=== PATIENT | male | born 1955 | race Caucasian/White ===

== ENCOUNTER 2018-06-17 17:36 | Emergency (ER) | payer OTHER ==
[2018-06-17] MEDS ORDERED: TRAZ150T8 PO (17:51)
[2018-06-17] MEDS ORDERED: DES100PT PO (17:51)
[2018-06-17] MEDS ORDERED: LAMO200T45 PO (17:51)
[2018-06-17 18:14] LABS: PLATELET COUNT, AUTOMATED 282 K/uL (150-450)
[2018-06-17] MEDS ORDERED: IOPAMIDOL 76% 75 ML INFUS BTL 0 ML ONE (18:28)
--- NOTE | 2018-06-17 18:35 | ER Report ---
History and Physical Time Seen By MD: 18:24 Hx. of Stated Complaint: pt reports blood in urine that started sunday, "got better, getting worse again" HPI/ROS CHIEF COMPLAINT: Painless hematuria HISTORY OF PRESENT ILLNESS: Patient is a 62-year-old male who resides in [facility]. He reports only history of treated depression without history of suicidal ideation. States this past Sunday he noticed some blood-tinged color to his urine by Sunday the blood in the urine had increasing heat and passing some clots. He states on Sunday the symptoms seemed to resolve and then today the blood in the urine returned. He reports that it is entirely painless. He denies dysuria denies any increase in urinary frequency or hesitancy. He denies any abdominal or trauma to the flanks. Smoker and also denies any alcohol or drug use. Similar symptoms in the past no prior history of cancer. 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 REVIEW OF SYSTEMS: Respiratory: No cough, no dyspnea. Cardiovascular: No chest pain, no palpitations. Gastrointestinal: No vomiting, no abdominal pain. Musculoskeletal: No back pain. : hematuria Allergies: Coded Allergies: Penicillins (Verified Allergy, Unknown, 06/17/18) Home Meds Reported Medications Trazodone Hcl (TRAZODONE HCL) 150 Mg Tablet, 150 MG PO QHS 06/17/18 Desvenlafaxine Succinate (PRISTIQ ER) 100 Mg Tabcr, 100 MG PO QDAY 06/17/18 Lamotrigine (LAMOTRIGINE) 200 Mg Tablet, 200 MG PO QDAY 06/17/18 Past Medical/Surgical History Depression without hx of suicide Constitutional Vital Sign - Last 24 Hours 06/17/18 06/17/18 06/17/18 06/17/18 17:40 17:45 17:51 18:00 Temp 97.8 Pulse 64 Resp 16 B/P (MAP) 165/97 165/97 (119) 153/103 (120) Pulse Ox 98 100 O2 Delivery Room Air 06/17/18 06/17/18 18:05 18:20 Pulse 58 Pulse Ox 100 Physical Exam General Appearance: The patient is alert, has no immediate need for airway protection and no current signs of toxicity. Eyes: Pupils equal and round no injection. Respiratory: Chest is non tender, lungs are clear to auscultation. Cardiac: regular rate and rhythm Gastrointestinal: Abdomen is soft and non tender, no masses, bowel sounds normal. No flank pain. Musculoskeletal: Neck: Neck is supple and non tender. Extremities have full range of motion and are non tender. Skin: No rashes or lesions. Medical Decision Making Data Points Result Diagram: 06/17/18180806/17/181808 Laboratory Hematology Test 06/17/18 17:42 06/17/18 18:09 Urine Color Ladi Urine Clarity Cloudy Urine pH 6.0 pH (4.8-9.5) Urine Specific Ennice 1.023 Urine Protein 100 mg/dL (NEGATIVE) Urine Glucose (UA) Negative mg/dL (NEGATIVE) Urine Ketones Negative mg/dL (NEGATIVE) Urine Blood Large (NEGATIVE) Urine Nitrite Negative (NEGATIVE) Urine Bilirubin Negative (NEGATIVE) Urine Urobilinogen Negative mg/dL (0.2-1.9) Urine Leukocyte Esterase Negative (NEGATIVE) Urine RBC 1932 /HPF (0-2/HPF) Urine WBC 3 /HPF (0-5/HPF) Urine Squamous Epithelial Cells None /LPF (</=FEW) Urine Bacteria Negative /HPF (NONE-FEW) Urine Mucus Few /HPF (NONE-FEW) Urine Yeast (Budding) Few /HPF Red Blood Count 4.69 M/uL (4.00-5.60) Mean Corpuscular Volume 88.5 fL (80.0-96.0) Mean Corpuscular Hemoglobin 30.5 pg (26.0-33.0) Mean Corpuscular Hemoglobin Concent 34.5 g/dL (32.0-36.0) Red Cell Distribution Width 13.4 % (11.5-14.5) Mean Platelet Volume 8.0 fL (7.2-11.1) Neutrophils (%) (Auto) 68.9 % (39.4-72.5) Lymphocytes (%) (Auto) 21.0 % (17.6-49.6) Monocytes (%) (Auto) 9.3 % (4.1-12.4) Eosinophils (%) (Auto) 0.3 % (0.4-6.7) Basophils (%) (Auto) 0.5 % (0.3-1.4) Nucleated RBC Relative Count (auto) 0.0 /100WBC Neutrophils # (Auto) 4.8 K/uL (2.0-7.4) Lymphocytes # (Auto) 1.5 K/uL (1.3-3.6) Monocytes # (Auto) 0.7 K/uL (0.3-1.0) Eosinophils # (Auto) 0.0 K/uL (0.0-0.5) Basophils # (Auto) 0.0 K/uL (0.0-0.1) Nucleated RBC Absolute Count (auto) 0.00 K/uL Sodium Level 139 mmol/L (137-145) Potassium Level 3.6 mmol/L (3.5-5.0) Chloride Level 100 mmol/L (98-107) Carbon Dioxide Level 29 mmol/L (22-30) Blood Urea Nitrogen 22 mg/dl (9-21) Creatinine 1.00 mg/dl (0.66-1.25) Glomerular Filtration Rate Calc > 60.0 Random Glucose 95 mg/dl (75-110) Calcium Level 9.1 mg/dl (8.4-10.2) Total Bilirubin 0.9 mg/dl (0.2-1.3) Aspartate Amino Transf (AST/SGOT) 30 U/L (0-35) Alanine Aminotransferase (ALT/SGPT) 30 U/L (0-56) Alkaline Phosphatase 87 U/L (0-126) Total Protein 7.5 g/dl (6.3-8.2) Albumin 4.2 g/dl (3.5-5.0) Chemistry Test 06/17/18 17:42 06/17/18 18:09 Urine Color Ladi Urine Clarity Cloudy Urine pH 6.0 pH (4.8-9.5) Urine Specific Ennice 1.023 Urine Protein 100 mg/dL (NEGATIVE) Urine Glucose (UA) Negative mg/dL (NEGATIVE) Urine Ketones Negative mg/dL (NEGATIVE) Urine Blood Large (NEGATIVE) Urine Nitrite Negative (NEGATIVE) Urine Bilirubin Negative (NEGATIVE) Urine Urobilinogen Negative mg/dL (0.2-1.9) Urine Leukocyte Esterase Negative (NEGATIVE) Urine RBC 1932 /HPF (0-2/HPF) Urine WBC 3 /HPF (0-5/HPF) Urine Squamous Epithelial Cells None /LPF (</=FEW) Urine Bacteria Negative /HPF (NONE-FEW) Urine Mucus Few /HPF (NONE-FEW) Urine Yeast (Budding) Few /HPF White Blood Count 7.0 k/uL (4.5-11.0) Red Blood Count 4.69 M/uL (4.00-5.60) Hemoglobin 14.3 g/dL (14.0-18.0) Hematocrit 41.4 % (42.0-52.0) Mean Corpuscular Volume 88.5 fL (80.0-96.0) Mean Corpuscular Hemoglobin 30.5 pg (26.0-33.0) Mean Corpuscular Hemoglobin Concent 34.5 g/dL (32.0-36.0) Red Cell Distribution Width 13.4 % (11.5-14.5) Platelet Count 282 K/uL (150-450) Mean Platelet Volume 8.0 fL (7.2-11.1) Neutrophils (%) (Auto) 68.9 % (39.4-72.5) Lymphocytes (%) (Auto) 21.0 % (17.6-49.6) Monocytes (%) (Auto) 9.3 % (4.1-12.4) Eosinophils (%) (Auto) 0.3 % (0.4-6.7) Basophils (%) (Auto) 0.5 % (0.3-1.4) Nucleated RBC Relative Count (auto) 0.0 /100WBC Neutrophils # (Auto) 4.8 K/uL (2.0-7.4) Lymphocytes # (Auto) 1.5 K/uL (1.3-3.6) Monocytes # (Auto) 0.7 K/uL (0.3-1.0) Eosinophils # (Auto) 0.0 K/uL (0.0-0.5) Basophils # (Auto) 0.0 K/uL (0.0-0.1) Nucleated RBC Absolute Count (auto) 0.00 K/uL Glomerular Filtration Rate Calc > 60.0 Calcium Level 9.1 mg/dl (8.4-10.2) Total Bilirubin 0.9 mg/dl (0.2-1.3) Aspartate Amino Transf (AST/SGOT) 30 U/L (0-35) Alanine Aminotransferase (ALT/SGPT) 30 U/L (0-56) Alkaline Phosphatase 87 U/L (0-126) Total Protein 7.5 g/dl (6.3-8.2) Albumin 4.2 g/dl (3.5-5.0) Urinalysis Test 06/17/18 17:42 Urine Color Ladi Urine Clarity Cloudy Urine pH 6.0 pH (4.8-9.5) Urine Specific Ennice 1.023 Urine Protein 100 mg/dL (NEGATIVE) Urine Glucose (UA) Negative mg/dL (NEGATIVE) Urine Ketones Negative mg/dL (NEGATIVE) Urine Blood Large (NEGATIVE) Urine Nitrite Negative (NEGATIVE) Urine Bilirubin Negative (NEGATIVE) Urine Urobilinogen Negative mg/dL (0.2-1.9) Urine Leukocyte Esterase Negative (NEGATIVE) Urine RBC 1932 /HPF (0-2/HPF) Urine WBC 3 /HPF (0-5/HPF) Urine Squamous Epithelial Cells None /LPF (</=FEW) Urine Bacteria Negative /HPF (NONE-FEW) Urine Mucus Few /HPF (NONE-FEW) Urine Yeast (Budding) Few /HPF EKG/Imaging Imaging [place]AC[place] [facility] [place]IENT NAME: Mamadou Quinonez : 1955 MR: [id number] V: [id number] EXAM DATE: ORDERING PHYSICIAN: QUYEN GAUTAM TECHNOLOGIST: Location: [facility] - [place] Patient: Mamadou Quinonez : 1955 Visit/Account:[id number] Date of Sevice: 06/17/2018 EXAMINATION: CT abdomen and pelvis without and with IV contrast (CT urogram) HISTORY: Gross hematuria. TECHNIQUE: Axial CT images of the abdomen and pelvis were initially obtained without IV contrast. Axial CT images of the abdomen and pelvis were then obtained with IV contrast, utilizing a split bolus technique with combined nephrographic and excretory delayed imaging performed at 8 minutes. Coronal and sagittal 2D reconstructed images were obtained. One of the following dose optimization techniques was utilized in the performance of this exam: Automated exposure control; adjustment of the mA and/or kV according to the patient's size; or use of an iterative reconstruction technique. Specific details can be referenced in the facility's radiology CT exam operational policy. Contrast: 120 mL of IV Isovue-370. COMPARISON: None. FINDINGS: Right kidney and ureter: There is a 4 mm calculus in the distal right ureter at the UVJ. This results in no significant right-sided hydronephrosis or ureteral dilatation at this time. No additional right-sided urinary calculi. Normal size and morphology of the right kidney, measuring 11.2 cm in length. The right kidney enhances normally. No focal solid or cystic renal mass. The renal collecting system and ureter are unremarkable on delayed imaging, without wall thickening or suspicious filling defect. Left kidney and ureter: Punctate nonobstructing 1 mm calculi in the upper and lower left kidney. No left-sided hydronephrosis or ureteral calculus. Normal size and morphology of the left kidney, measuring 10.7 cm in length. The left kidney enhances normally. Single subcentimeter cyst in the upper left kidney. No solid enhancing renal mass. The renal collecting system and left ureter are unremarkable on delayed imaging, without wall thickening or suspicious filling defect. Urinary bladder: Mildly distended and morphologically unremarkable. Moderate prostatic enlargement. Liver: Negative. Gallbladder and bile ducts: Negative. Spleen: Negative. Pancreas: Negative. Adrenal glands: Negative. Bowel and peritoneum: The small bowel and colon are normal in caliber, without evidence of obstruction or any focal inflammatory process. No free fluid or free intraperitoneal air. Lymph node assessment: Negative. Vessels: Negative. Musculoskeletal: No acute osseous findings. Scattered degenerative changes along the lumbar spine. Body wall: Negative. Lung bases: Negative. IMPRESSION: 1. 4 mm calculus in the distal right ureter at the UVJ. This results in no significant hydronephrosis or upstream ureteral dilatation at this time. 2. Punctate nonobstructing 1 mm calculi in the mid and lower left kidney. 3. Moderate prostatic enlargement. 4. No other acute intra-abdominal findings. Report Dictated By: Pop Barrientos MD at 06/17/2018 7:14 PM Report E-Signed By: Pop Barrientos MD at 06/17/2018 7:25 PM [id number] ED Course/Re-evaluation ED Course 06/17/2018 6:34:51 pm patient with painless hematuria passing clots. Urinalysis shows large blood no bacteria negative for nitrites and leuk esterase. I will obtain CBC and electrolytes. Plan will be a CT of the abdomen and pelvis with and without contrast looking at urogram study. 06/17/2018 7:34:[address] scan shows a 4 mm UVJ stone there is no evidence of hydronephrosis. The patient also with enlarged prostate. No other acute abdominal findings were noted. Hematuria could be a result of this done however I still feel patient needs follow-up with urology. He was counseled to call tomorrow to schedule an appointment. Also further instructed to return to the emergency department if any time he develops pain, fevers worsening symptoms including worsening hematuria. Decision to Disposition Date: Jun 17, 2018 Decision to Disposition Time: 19:35 Depart Departure Latest Vital Signs Vital Signs Date Time Temp Pulse Resp B/P (MAP) Pulse Ox O2 Delivery O2 Flow Rate FiO2 06/17/18 18:20 58 06/17/18 18:05 100 06/17/18 18:00 153/103 (120) 06/17/18 17:40 97.8 16 Room Air Impression: Primary Impression: Hematuria Additional Impression: Kidney stone Condition: Improved Disposition: HOME OR SELF-CARE Referrals: JESÚS LARA MD Patient Instructions: Hematuria (ED), Kidney Stones (ED) Additional Instructions: You were given contact information for Dr. Christopher Lara urology. Call tomorrow to schedule a follow-up appointment. States that you've been having painless blood in the urine and were seen in the emergency department were diagnosed with a kidney stone and an enlarged prostate. Return to the emergency department at any time if he developed abdominal or flank pain, if he developed dysuria or worsening blood in the urine. Return if you develop fever at any time. Problem Qualifiers Primary Impression: Hematuria Hematuria type: unspecified type Qualified Codes: R31.9 - Hematuria, unspecified QUYEN GAUTAM MD Jun 17, 2018 18:35
[2018-06-17] MEDS ORDERED: NS(*) 0.9% 50 ML BAG 50 ML ONE (18:38)
[2018-06-17] MEDS ORDERED: IOPAMIDOL 76% 50 ML INFUS BTL 0 ML ONE (18:38)
[2018-06-17] MEDS ORDERED: IOPAMIDOL 76% 150 ML INFUS BTL 150 ML ONE (18:40)
--- NOTE | 2018-06-17 19:28 | RADIOLOGY IMAGING REPORT ---
FACILITY: [facility] [place]IENT NAME: Mamadou Quinonez : 1955 MR: [id number] V: [id number] EXAM DATE: ORDERING PHYSICIAN: QUYEN GAUTAM TECHNOLOGIST: Location: [facility] [place] Patient: Mamadou Quinonez : 1955 Visit/Account:[id number] Date of Sevice: 06/17/2018 EXAMINATION: CT abdomen and pelvis without and with IV contrast (CT urogram) HISTORY: Gross hematuria. TECHNIQUE: Axial CT images of the abdomen and pelvis were initially obtained without IV contrast. Axial CT imag es of the abdomen and pelvis were then obtained with IV contrast, utilizing a split bolus technique w ith combined nephrographic and excretory delayed imaging performed at 8 minutes. Coronal and sagitta l 2D reconstructed images were obtained. One of the following dose optimization techniques was utilized in the performance of this exam: Autom ated exposure control; adjustment of the mA and/or kV according to the patient's size; or use of an i terative reconstruction technique. Specific details can be referenced in the facility's radiology C T exam operational policy. Contrast: 120 mL of IV Isovue-370. COMPARISON: None. FINDINGS: Right kidney and ureter: There is a 4 mm calculus in the distal right ureter at the UVJ. This resul ts in no significant right-sided hydronephrosis or ureteral dilatation at this time. No additional right-sided urinary calculi. Normal size and morphology of the right kidney, measuring 11.2 cm in length. The right kidney enhances normally. No focal solid or cystic renal mass. The r enal collecting system and ureter are unremarkable on delayed imaging, without wall thickening or florin picious filling defect. Left kidney and ureter: Punctate nonobstructing 1 mm calculi in the upper and lower left kidney. No left-sided hydronephrosis or ureteral calculus. Normal size and morphology of the left kidney, sofi uring 10.7 cm in length. The left kidney enhances normally. Single subcentimeter cyst in the upper left kidney. No solid enhancing renal mass. The renal collecting system and left ureter are unremar kable on delayed imaging, without wall thickening or suspicious filling defect. Urinary bladder: Mildly distended and morphologically unremarkable. Moderate prostatic enlargement. Liver: Negative. Gallbladder and bile ducts: Negative. Spleen: Negative. Pancreas: Negative. Adrenal glands: Negative. Bowel and peritoneum: The small bowel and colon are normal in caliber, without evidence of obstructi on or any focal inflammatory process. No free fluid or free intraperitoneal air. Lymph node assessment: Negative. Vessels: Negative. Musculoskeletal: No acute osseous findings. Scattered degenerative changes along the lumbar spine. Body wall: Negative. Lung bases: Negative. IMPRESSION: 1. 4 mm calculus in the distal right ureter at the UVJ. This results in no significant hydronephros is or upstream ureteral dilatation at this time. 2. Punctate nonobstructing 1 mm calculi in the mid and lower left kidney. 3. Moderate prostatic enlargement. 4. No other acute intra-abdominal findings. Report Dictated By: Pop Barrientos MD at 06/17/2018 7:14 PM Report E-Signed By: Pop Barrientos MD at 06/17/2018 7:25 PM [id number]
[2018-06-17 19:30] VITALS: BP 150/95
== END 2018-06-17 19:43 | disposition home or self-care (01) ==
LOC: ER 18:18
DX: N20.0 Calculus of kidney (principal); R31.9 Hematuria, unspecified
CPT/HCPCS: 36415; 74178; 81001; 85025; 99284; J7050; Q9967; 82040; 82247; 82310; 82374; 82435; 82565; 82947; 84075; 84132; 84155; 84295; 84450; 84460; 84520